=== PATIENT | female | born 1930 | race Caucasian/White ===

== ENCOUNTER 2021-03-02 16:19 | Inpatient (IN) | payer MEDICARE ==
[~2021-03-02] VITALS: Ht 149.9 cm; Wt 44.9 kg
[~2021-03-02 16:19] MED LIST: ETOMIDATE 2MG/ML 10ML VIAL IV ONE; SUCCINYLCHOLINE CHLORIDE 200MG/10ML IV ONE
[2021-03-02] MEDS ORDERED: PROPOFOL 10MG/ML 100ML 100 ML IV ONE (17:00)
[2021-03-02] MEDS ORDERED: PIPERACILLIN/TAZ 3.375G PREMIX 50 ML IV ONE (17:00)
[2021-03-02] MEDS ORDERED: VANCOMYCIN 1 G PREMIX 200 ML IV ONE (17:00)
[2021-03-02 17:33] LABS: BG BASE EXCESS 0.6 mmol/L (-2.0-2.0); BG CARBOXYHEMOGLOBIN 0.1 % (0.5-1.5); BG DEOXYHEMOGLOBIN 0.3 % (0.0-5.0); BG METHEMOGLOBIN 0.2 % (0.0-1.5); BG OXYGEN SATURATION 99.7 % (92.0-98.5); BG OXYHEMOGLOBIN 99.4 % (94.0-97.0); BG PCO2 50.8 mmHg (35.0-45.0); BG PH 7.344 (7.350-7.450); BG SAMPLE SITE RIGHT BRACHIAL; BG TOTAL HEMOGLOBIN 12.8 g/dL (12.0-18.0); BG VENT MODE VENT - AC
[2021-03-02 18:48] LABS: CHLORIDE 111 mEq/L (98-107)
[2021-03-02 18:50] LABS: HEMATOCRIT. 35.5 % (36.0-48.0); HEMOGLOBIN. 11.4 g/dL (12.0-16.0); MEAN CORPUSCULAR HEMOGLOBIN 26.9 pg (28.0-32.0); MEAN CORPUSCULAR VOLUME 84.1 fL (81.0-99.0); MEAN PLATELET VOLUME 7.6 fl (7.4-10.4); PLATELET 252 x1000/uL (130-400); RED BLOOD CELL COUNT 4.22 mill/uL (4.2-5.4); RED CELL DISTRIBUTION WIDTH 14.9 % (11.6-14.6)
[2021-03-02 19:24] LABS: CLARITY URINE TURBID (CLEAR); COLOR URINE YELLOW (YELLOW); KETONES URINE NEGATIVE (NEGATIVE); LEUKOCYTE ESTERASE URINE TRACE (NEGATIVE); NITRITE URINE NEGATIVE (NEGATIVE); OCCULT BLOOD URINE 3+ (NEGATIVE); PROTEIN URINE 2+ (NEGATIVE); UROBILINOGEN URINE 0.2 E.U./dL (0.2-1.0)
[2021-03-02] MEDS ORDERED: PROPOFOL 10MG/ML 100ML 100 ML IV PRN (21:15)
[2021-03-02] MEDS ORDERED: FENTANYL CITRATE 2,500 MCG in SODIUM CHLORIDE 0.9% 200 ML IV PRN (21:15)
[2021-03-02] MEDS ORDERED: NOREPINEPHRINE 8MG/250ML PMX 250 ML IV PRN (21:15)
[2021-03-02] MEDS ORDERED: IPRATROPIUM/ALBUTEROL 0.5-3(2.5)MG/3ML NEB NEB PRN (21:30)
[2021-03-02] MEDS ORDERED: ACETAMINOPHEN 650MG/20.3ML UDC GT PRN ×2 (21:30)
[2021-03-02] MEDS ORDERED: BLOOD SUGAR DIAGNOSTIC STRIP TEST SCH (21:30)
[2021-03-02] MEDS ORDERED: CLONIDINE 0.1MG TABLET NG PRN (21:30)
[2021-03-02] MEDS ORDERED: DEXTROSE 50% WATER 50ML SYRINGE IV PRN ×2 (21:30→22:00)
[2021-03-02] MEDS ORDERED: ONDANSETRON HCL 4MG/2ML INJ IV PRN (21:30)
[2021-03-02 22:33] LABS: PLATELET ESTIMATE NORMAL
[2021-03-02] MEDS: DEXT 5%/0.45% NACL 1000ML 1,000 ML IV SCH (22:50)
[2021-03-03] VITALS (81 sets, daily range): BP systolic 79–162; BP diastolic 47–89
[2021-03-03] MEDS: BLOOD SUGAR DIAGNOSTIC STRIP TEST SCH ×4 (00:20→18:00)
[2021-03-03 05:17] LABS: BG BASE EXCESS 6.5 mmol/L (-2.0-2.0); BG CARBOXYHEMOGLOBIN 0.3 % (0.5-1.5); BG FRACTION INSPIRED OXYGEN 40; BG HCO3 ACT 28.3 mmol/L (22.0-26.0); BG METHEMOGLOBIN 0.2 % (0.0-1.5); BG OXYHEMOGLOBIN 98.5 % (94.0-97.0); BG PCO2 31.5 mmHg (35.0-45.0); BG PH 7.572 (7.350-7.450); BG PO2 157.2 mmHg (75.0-100.0); BG SAMPLE SITE RIGHT BRACHIAL; BG TOTAL HEMOGLOBIN 11.5 g/dL (12.0-18.0); BG VENT MODE VENT - AC
[2021-03-03] MEDS ORDERED: NOREPINEPHRINE 8 MG in DEXTROSE 5% WATER 250 ML IV PRN (05:45)
[2021-03-03] MEDS ORDERED: PIPERACILLIN/TAZOBACTAM 3.375 G in DEXTROSE 5% WATER 50 ML IV SCH ×2 (06:00→09:00)
[2021-03-03 06:21] LABS: CHLORIDE 110 mEq/L (98-107)
[2021-03-03 06:27] LABS: HEMATOCRIT. 33.7 % (36.0-48.0); HEMOGLOBIN. 11.1 g/dL (12.0-16.0); MEAN CORPUSCULAR HEMOGLOBIN 27.4 pg (28.0-32.0); MEAN PLATELET VOLUME 7.4 fl (7.4-10.4); PLATELET 215 x1000/uL (130-400); RED BLOOD CELL COUNT 4.06 mill/uL (4.2-5.4); RED CELL DISTRIBUTION WIDTH 14.5 % (11.6-14.6)
[2021-03-03] MEDS: IPRATROPIUM/ALBUTEROL 0.5-3(2.5)MG/3ML NEB HHN SCH ×3 (07:54→21:03)
[2021-03-03] MEDS ORDERED: INSULIN LISPRO 100 UNITS/ML SUBCUT SCH (08:20)
[2021-03-03] MEDS ORDERED: POTASSIUM CHLORIDE 20MEQ/PACKET NG SCH (08:45)
[2021-03-03] MEDS ORDERED: ENOXAPARIN 30MG/0.3ML SYR SUBCUT SCH (09:00)
[2021-03-03] MEDS: FAMOTIDINE 20MG/2ML VIAL IV SCH (09:08)
[2021-03-03] MEDS: PIPERACILLIN/TAZOBACTAM 3.375 G in DEXTROSE 5% WATER 50 ML IV SCH ×3 (09:08→21:07)
[2021-03-03] MEDS: INSULIN LISPRO 100 UNITS/ML SUBCUT SCH ×3 (09:11→18:20)
[2021-03-03] MEDS ORDERED: POTASSIUM CHLORIDE INJ 40 MEQ in DEXT 5% WATER 250 ML IV SCH (10:00)
[2021-03-03 11:37] LABS: PLATELET ESTIMATE NORMAL
[2021-03-03] MEDS: KCL 20MEQ/100ML PREMIX 100 ML IV SCH ×2 (12:04→14:57)
[2021-03-03] MEDS: DEXT 5%/0.45% NACL 1000ML 1,000 ML IV SCH (18:25)
[2021-03-04] VITALS (36 sets, daily range): BP systolic 101–144; BP diastolic 52–78
[2021-03-04] MEDS: INSULIN LISPRO 100 UNITS/ML SUBCUT SCH ×4 (00:10→18:00)
[2021-03-04] MEDS: PROPOFOL 10MG/ML 100ML 100 ML IV PRN ×2 (00:11→20:00)
[2021-03-04] MEDS: BLOOD SUGAR DIAGNOSTIC STRIP TEST SCH ×4 (00:11→18:00)
[2021-03-04] MEDS: IPRATROPIUM/ALBUTEROL 0.5-3(2.5)MG/3ML NEB HHN SCH ×4 (01:37→21:17)
[2021-03-04] MEDS: PIPERACILLIN/TAZOBACTAM 3.375 G in DEXTROSE 5% WATER 50 ML IV SCH ×3 (05:09→21:20)
[2021-03-04 06:22] LABS: EOSINOPHILS % 0.2 % (0.0-5.0); HEMOGLOBIN. 10.2 g/dL (12.0-16.0); LYMPHOCYTES % 7.9 % (20.0-50.0); MEAN PLATELET VOLUME 7.3 fl (7.4-10.4); MONOCYTES % 4.5 % (2.0-8.0); NEUTROPHILS % 87.4 % (40.0-76.0); PLATELET 208 x1000/uL (130-400); RED BLOOD CELL COUNT 3.78 mill/uL (4.2-5.4); RED CELL DISTRIBUTION WIDTH 15.1 % (11.6-14.6)
[2021-03-04 06:33] LABS: CHLORIDE 109 mEq/L (98-107)
[2021-03-04 06:52] LABS: FOLIC ACID (FOLATE) SERUM 6.6 ng/mL (>5.38)
[2021-03-04] MEDS: ENOXAPARIN 40MG/0.4ML SYR SUBCUT SCH (09:00)
[2021-03-04] MEDS: FAMOTIDINE 20MG/2ML VIAL IV SCH (09:00)
[2021-03-04 09:30] LABS: BG BASE EXCESS 0.6 mmol/L (-2.0-2.0); BG CARBOXYHEMOGLOBIN 0.3 % (0.5-1.5); BG DEOXYHEMOGLOBIN 0.8 % (0.0-5.0); BG FRACTION INSPIRED OXYGEN 40; BG HCO3 ACT 23.9 mmol/L (22.0-26.0); BG METHEMOGLOBIN 0.2 % (0.0-1.5); BG OXYGEN SATURATION 99.2 % (92.0-98.5); BG OXYHEMOGLOBIN 98.7 % (94.0-97.0); BG PCO2 33.7 mmHg (35.0-45.0); BG PH 7.469 (7.350-7.450); BG PO2 177.9 mmHg (75.0-100.0); BG TOTAL HEMOGLOBIN 10.4 g/dL (12.0-18.0); BG VENT MODE VENT - AC
[2021-03-04] MEDS: DEXT 5%/0.45% NACL 1000ML 1,000 ML IV SCH (14:30)
[2021-03-04] MEDS ORDERED: PROPOFOL 10MG/ML 100ML 100 ML IV PRN (20:01)
[2021-03-05] VITALS (40 sets, daily range): BP systolic 106–153; BP diastolic 62–91
[2021-03-05] MEDS: INSULIN LISPRO 100 UNITS/ML SUBCUT SCH ×4 (00:24→18:45)
[2021-03-05] MEDS: BLOOD SUGAR DIAGNOSTIC STRIP TEST SCH ×4 (00:24→17:25)
[2021-03-05] MEDS: IPRATROPIUM/ALBUTEROL 0.5-3(2.5)MG/3ML NEB HHN SCH ×4 (00:37→20:47)
[2021-03-05] MEDS: PIPERACILLIN/TAZOBACTAM 3.375 G in DEXTROSE 5% WATER 50 ML IV SCH ×3 (05:19→22:00)
[2021-03-05] MEDS: ENOXAPARIN 40MG/0.4ML SYR SUBCUT SCH (09:09)
[2021-03-05] MEDS: FAMOTIDINE 20MG/2ML VIAL IV SCH (09:09)
[2021-03-05] MEDS: DEXT 5%/0.45% NACL 1000ML 1,000 ML IV SCH (09:10)
[2021-03-05 10:02] LABS: BG BASE EXCESS -1.2 mmol/L (-2.0-2.0); BG CARBOXYHEMOGLOBIN 0.3 % (0.5-1.5); BG DEOXYHEMOGLOBIN 1.1 % (0.0-5.0); BG FRACTION INSPIRED OXYGEN 30; BG HCO3 ACT 22.4 mmol/L (22.0-26.0); BG METHEMOGLOBIN 0.2 % (0.0-1.5); BG OXYGEN SATURATION 98.9 % (92.0-98.5); BG OXYHEMOGLOBIN 98.4 % (94.0-97.0); BG PCO2 33.3 mmHg (35.0-45.0); BG PH 7.445 (7.350-7.450); BG PO2 144.6 mmHg (75.0-100.0); BG SAMPLE SITE LEFT RADIAL; BG TOTAL HEMOGLOBIN 10.8 g/dL (12.0-18.0); BG VENT MODE VENT - AC
[2021-03-05 14:23] LABS: BG BASE EXCESS 1.2 mmol/L (-2.0-2.0); BG CARBOXYHEMOGLOBIN 0.3 % (0.5-1.5); BG DEOXYHEMOGLOBIN 1.9 % (0.0-5.0); BG FRACTION INSPIRED OXYGEN 30; BG HCO3 ACT 24.4 mmol/L (22.0-26.0); BG METHEMOGLOBIN 0.4 % (0.0-1.5); BG OXYGEN SATURATION 98.1 % (92.0-98.5); BG OXYHEMOGLOBIN 97.4 % (94.0-97.0); BG PCO2 33.7 mmHg (35.0-45.0); BG PH 7.478 (7.350-7.450); BG PO2 108.1 mmHg (75.0-100.0); BG SAMPLE SITE RIGHT RADIAL; BG TOTAL HEMOGLOBIN 11.2 g/dL (12.0-18.0); BG VENT MODE VENT - CPAP
[2021-03-06] VITALS (22 sets, daily range): BP systolic 87–140; BP diastolic 51–77
[2021-03-06] MEDS: IPRATROPIUM/ALBUTEROL 0.5-3(2.5)MG/3ML NEB HHN SCH ×3 (00:29→20:51)
[2021-03-06] MEDS: BLOOD SUGAR DIAGNOSTIC STRIP TEST SCH ×4 (05:04→18:52)
[2021-03-06] MEDS: PIPERACILLIN/TAZOBACTAM 3.375 G in DEXTROSE 5% WATER 50 ML IV SCH ×3 (05:04→21:16)
[2021-03-06] MEDS: DEXT 5%/0.45% NACL 1000ML 1,000 ML IV SCH (05:05)
[2021-03-06] MEDS: INSULIN LISPRO 100 UNITS/ML SUBCUT SCH ×4 (06:00→18:00)
[2021-03-06 06:15] LABS: HEMATOCRIT. 28.1 % (36.0-48.0); HEMOGLOBIN. 9.4 g/dL (12.0-16.0); MEAN CORPUSCULAR HEMOGLOBIN 27.4 pg (28.0-32.0); MEAN CORPUSCULAR VOLUME 82.2 fL (81.0-99.0); MEAN PLATELET VOLUME 7.1 fl (7.4-10.4); PLATELET 235 x1000/uL (130-400); RED BLOOD CELL COUNT 3.42 mill/uL (4.2-5.4); RED CELL DISTRIBUTION WIDTH 14.9 % (11.6-14.6)
[2021-03-06 06:31] LABS: CHLORIDE 108 mEq/L (98-107)
[2021-03-06] MEDS ORDERED: POTASSIUM CHLORIDE 20MEQ/PACKET NG NR (08:15)
[2021-03-06] MEDS: ENOXAPARIN 40MG/0.4ML SYR SUBCUT SCH (08:32)
[2021-03-06] MEDS: FAMOTIDINE 20MG/2ML VIAL IV SCH (08:32)
[2021-03-06 11:08] LABS: PLATELET ESTIMATE NORMAL
[2021-03-06] MEDS: PANTOPRAZOLE SODIUM 40 MG/VIAL IV SCH (21:16)
[2021-03-07] VITALS (11 sets, daily range): BP systolic 110–144; BP diastolic 61–80
[2021-03-07] MEDS: DEXT 5%/0.45% NACL 1000ML 1,000 ML IV SCH ×2 (01:11→21:10)
[2021-03-07] MEDS: IPRATROPIUM/ALBUTEROL 0.5-3(2.5)MG/3ML NEB HHN SCH ×4 (03:31→20:28)
[2021-03-07] MEDS: PIPERACILLIN/TAZOBACTAM 3.375 G in DEXTROSE 5% WATER 50 ML IV SCH ×3 (05:45→23:40)
[2021-03-07] MEDS: INSULIN LISPRO 100 UNITS/ML SUBCUT SCH ×5 (05:59→23:54)
[2021-03-07] MEDS: BLOOD SUGAR DIAGNOSTIC STRIP TEST SCH ×5 (05:59→23:43)
[2021-03-07 08:22] LABS: PROTHROMBIN TIME 10.9 sec (9.6-11.0)
[2021-03-07] MEDS: FAMOTIDINE 20MG/2ML VIAL IV SCH (08:31)
[2021-03-07] MEDS: PANTOPRAZOLE SODIUM 40 MG/VIAL IV SCH (08:31)
[2021-03-07 08:33] LABS: HEMOGLOBIN. 9.6 g/dL (12.0-16.0); MEAN CORPUSCULAR HEMOGLOBIN 27.3 pg (28.0-32.0); MEAN CORPUSCULAR VOLUME 82.1 fL (81.0-99.0); MEAN PLATELET VOLUME 7.1 fl (7.4-10.4); PLATELET 269 x1000/uL (130-400); RED BLOOD CELL COUNT 3.53 mill/uL (4.2-5.4); RED CELL DISTRIBUTION WIDTH 14.9 % (11.6-14.6)
[2021-03-07 08:55] LABS: CHLORIDE 106 mEq/L (98-107)
[2021-03-07] MEDS: ENOXAPARIN 40MG/0.4ML SYR SUBCUT SCH (09:00)
[2021-03-07] MEDS: KCL 20MEQ/100ML PREMIX 100 ML IV SCH ×2 (11:20→13:45)
[2021-03-07 14:19] LABS: PLATELET ESTIMATE NORMAL
[2021-03-07] MEDS ORDERED: MIDAZOLAM HCL 5 MG/5 ML VIAL ONE (14:33)
[2021-03-07] MEDS ORDERED: FENTANYL CITRATE/PF 50MCG/ML 2ML VIAL ONE (14:33)
[2021-03-07] MEDS ORDERED: MIDAZOLAM HCL 5 MG/5 ML VIAL IV PRN (14:43)
[2021-03-08] VITALS (11 sets, daily range): BP systolic 94–136; BP diastolic 51–72
[2021-03-08] MEDS: IPRATROPIUM/ALBUTEROL 0.5-3(2.5)MG/3ML NEB HHN SCH ×4 (01:03→20:38)
[2021-03-08] MEDS: METOCLOPRAMIDE HCL 10MG/2ML VIAL IV SCH ×4 (05:25→23:47)
[2021-03-08] MEDS: PIPERACILLIN/TAZOBACTAM 3.375 G in DEXTROSE 5% WATER 50 ML IV SCH (05:55)
[2021-03-08] MEDS: INSULIN LISPRO 100 UNITS/ML SUBCUT SCH ×3 (06:00→17:59)
[2021-03-08] MEDS: BLOOD SUGAR DIAGNOSTIC STRIP TEST SCH ×4 (06:00→23:47)
[2021-03-08] MEDS: ENOXAPARIN 40MG/0.4ML SYR SUBCUT SCH (08:21)
[2021-03-08] MEDS: FAMOTIDINE 20MG TABLET GT SCH (08:21)
[2021-03-08] MEDS ORDERED: POTASSIUM CHLORIDE 20MEQ/PACKET PEG ONE (09:15)
[2021-03-08 10:13] LABS: HEMATOCRIT. 29.3 % (36.0-48.0); HEMOGLOBIN. 9.6 g/dL (12.0-16.0); MEAN CORPUSCULAR HEMOGLOBIN 26.8 pg (28.0-32.0); MEAN CORPUSCULAR VOLUME 81.7 fL (81.0-99.0); MEAN PLATELET VOLUME 6.9 fl (7.4-10.4); PLATELET 304 x1000/uL (130-400); RED BLOOD CELL COUNT 3.58 mill/uL (4.2-5.4); RED CELL DISTRIBUTION WIDTH 14.7 % (11.6-14.6)
[2021-03-08 10:17] LABS: CHLORIDE 105 mEq/L (98-107)
[2021-03-08] MEDS ORDERED: POTASSIUM CHLORIDE 20MEQ/PACKET PEG NR (11:45)
[2021-03-08 11:52] LABS: BG BASE EXCESS 3.6 mmol/L (-2.0-2.0); BG CARBOXYHEMOGLOBIN 0.3 % (0.5-1.5); BG DEOXYHEMOGLOBIN 9.5 % (0.0-5.0); BG HCO3 ACT 26.3 mmol/L (22.0-26.0); BG METHEMOGLOBIN 0.3 % (0.0-1.5); BG OXYGEN SATURATION 90.4 % (92.0-98.5); BG OXYHEMOGLOBIN 89.9 % (94.0-97.0); BG PCO2 33.2 mmHg (35.0-45.0); BG PH 7.517 (7.350-7.450); BG PO2 55.1 mmHg (75.0-100.0); BG TOTAL HEMOGLOBIN 10.4 g/dL (12.0-18.0)
[2021-03-08] MEDS ORDERED: MAGNESIUM 2 G PREMIX 50 ML IV SCH (13:30)
[2021-03-08 14:39] LABS: PLATELET ESTIMATE NORMAL
[2021-03-09] VITALS (12 sets, daily range): BP systolic 98–129; BP diastolic 54–81
[2021-03-09] MEDS: IPRATROPIUM/ALBUTEROL 0.5-3(2.5)MG/3ML NEB HHN SCH ×4 (02:21→20:29)
[2021-03-09] MEDS: METOCLOPRAMIDE HCL 10MG/2ML VIAL IV SCH ×4 (05:45→23:47)
[2021-03-09] MEDS: BLOOD SUGAR DIAGNOSTIC STRIP TEST SCH ×4 (05:45→23:47)
[2021-03-09] MEDS: INSULIN LISPRO 100 UNITS/ML SUBCUT SCH ×5 (05:48→23:47)
[2021-03-09] MEDS: FAMOTIDINE 20MG TABLET GT SCH (09:36)
[2021-03-09] MEDS: ENOXAPARIN 40MG/0.4ML SYR SUBCUT SCH (09:36)
[2021-03-10] VITALS (12 sets, daily range): BP systolic 110–153; BP diastolic 54–75
[2021-03-10] MEDS: IPRATROPIUM/ALBUTEROL 0.5-3(2.5)MG/3ML NEB HHN SCH ×4 (01:50→21:32)
[2021-03-10] MEDS: BLOOD SUGAR DIAGNOSTIC STRIP TEST SCH ×3 (06:17→18:05)
[2021-03-10] MEDS: INSULIN LISPRO 100 UNITS/ML SUBCUT SCH ×3 (06:18→18:20)
[2021-03-10] MEDS: FAMOTIDINE 20MG TABLET GT SCH (08:25)
[2021-03-10] MEDS: ENOXAPARIN 40MG/0.4ML SYR SUBCUT SCH (08:26)
[2021-03-11] VITALS (13 sets, daily range): BP systolic 93–138; BP diastolic 45–70
[2021-03-11] MEDS: IPRATROPIUM/ALBUTEROL 0.5-3(2.5)MG/3ML NEB HHN SCH ×4 (02:48→20:44)
[2021-03-11] MEDS: INSULIN LISPRO 100 UNITS/ML SUBCUT SCH ×4 (05:48→17:44)
[2021-03-11] MEDS: BLOOD SUGAR DIAGNOSTIC STRIP TEST SCH ×5 (05:48→23:27)
[2021-03-11] MEDS: FAMOTIDINE 20MG TABLET GT SCH (09:25)
[2021-03-11] MEDS: ENOXAPARIN 40MG/0.4ML SYR SUBCUT SCH (09:26)
[2021-03-12] VITALS (9 sets, daily range): BP systolic 106–116; BP diastolic 50–58
[2021-03-12] MEDS: IPRATROPIUM/ALBUTEROL 0.5-3(2.5)MG/3ML NEB HHN SCH ×4 (01:50→20:35)
[2021-03-12] MEDS: INSULIN LISPRO 100 UNITS/ML SUBCUT SCH ×5 (06:00→23:16)
[2021-03-12] MEDS: BLOOD SUGAR DIAGNOSTIC STRIP TEST SCH ×4 (07:15→23:13)
[2021-03-12] MEDS: FAMOTIDINE 20MG TABLET GT SCH (08:56)
[2021-03-12] MEDS ORDERED: ENOXAPARIN 60MG/0.6ML SYR SUBCUT SCH (09:00)
[2021-03-13] VITALS: BP 112/56
[2021-03-13] MEDS: IPRATROPIUM/ALBUTEROL 0.5-3(2.5)MG/3ML NEB HHN SCH ×3 (00:36→15:40)
[2021-03-13 04:00] VITALS: BP 99/55
[2021-03-13 07:43] VITALS: BP 113/69
[2021-03-13] MEDS ORDERED: ENOXAPARIN 40MG/0.4ML SYR SUBCUT SCH (09:00)
[2021-03-13] MEDS: FAMOTIDINE 20MG TABLET GT SCH (09:48)
[2021-03-13 12:00] VITALS: BP 122/59
[2021-03-13] MEDS: BLOOD SUGAR DIAGNOSTIC STRIP TEST SCH (12:50)
[2021-03-13] MEDS: INSULIN LISPRO 100 UNITS/ML SUBCUT SCH (12:53)
[2021-03-13 15:32] VITALS: BP 122/59
[2021-03-13 16:00] VITALS: BP 124/61
== END 2021-03-13 17:30 | disposition home health service (06) | DRG 853 ==
LOC: ER 16:19 → CVICU 19:35 → EDBEDREQ 19:37 → EDBEDREQTM 19:37 → ENRESERV 23:36 → CANBEDREQ 03-03 02:28 → 5EST 03-06 08:59
PROVIDERS: ADMIT Internal Medicine; ATTEND Internal Medicine
PROC: 5A1945Z Respiratory Ventilation, 24-96 Consecutive Hours (ICD-10-PCS; principal; 2021-03-02)
PROC: 06HY33Z Insertion of Infusion Device into Lower Vein, Percutaneous Approach (ICD-10-PCS; 2021-03-02)
PROC: 0BH17EZ Insertion of Endotracheal Airway into Trachea, Via Natural or Artificial Opening (ICD-10-PCS; 2021-03-02)
PROC: 05HY33Z Insertion of Infusion Device into Upper Vein, Percutaneous Approach (ICD-10-PCS; 2021-03-06)
PROC: B54MZZA Ultrasonography of Right Upper Extremity Veins, Guidance (ICD-10-PCS; 2021-03-06)
PROC: 0DB78ZX Excision of Stomach, Pylorus, Via Natural or Artificial Opening Endoscopic, Diagnostic (ICD-10-PCS; 2021-03-07)
PROC: 0DH63UZ Insertion of Feeding Device into Stomach, Percutaneous Approach (ICD-10-PCS; 2021-03-07)
PROC: 0KBP0ZZ Excision of Left Hip Muscle, Open Approach (ICD-10-PCS; 2021-03-08)
PROC: 0KBN0ZZ Excision of Right Hip Muscle, Open Approach (ICD-10-PCS; 2021-03-08)
DX: A41.9 Sepsis, unspecified organism (principal); L89.154 Pressure ulcer of sacral region, stage 4; J96.01 Acute respiratory failure with hypoxia; E43 Unspecified severe protein-calorie malnutrition; J69.0 Pneumonitis due to inhalation of food and vomit; E87.0 Hyperosmolality and hypernatremia; I67.82 Cerebral ischemia; I82.402 Acute embolism and thrombosis of unspecified deep veins of left lower extremity; G93.40 Encephalopathy, unspecified; E87.6 Hypokalemia; F02.80 Dementia in other diseases classified elsewhere, unspecified severity, without behavioral disturbance, psychotic disturbance, mood disturbance, and anxiety; G30.9 Alzheimer's disease, unspecified; Z20.822 Contact with and (suspected) exposure to COVID-19; R73.9 Hyperglycemia, unspecified; Z96.649 Presence of unspecified artificial hip joint; K29.70 Gastritis, unspecified, without bleeding; D50.9 Iron deficiency anemia, unspecified; R13.10 Dysphagia, unspecified; Z90.49 Acquired absence of other specified parts of digestive tract; Z68.20 Body mass index [BMI] 20.0-20.9, adult
CPT/HCPCS: 36415; 36600; 71045; 76937; 80048; 80053; 81003; 82040; 82375; 82746; 82805; 82962; 83036; 83605; 83735; 84134; 84145; 84425; 84443; 84478; 84484; 85025; 87070; 87426; 87804; 88305; 92610; 93005; 93970; 94002; 99291; A6261; C1725; C9113; J0330; J1650; J1815; J2250; J2405; J2543; J2704; J2765; J3010; J3370; J3475; J3480; J3490; J7060